=== PATIENT | male | born 1980 | race Caucasian/White ===

== ENCOUNTER 2019-11-09 02:51 | Emergency (ER) | payer SELFPAY ==
[2019-11-09] MEDS ORDERED: EPINEPHrine 1 MG/10 ML Abboject SYRINGE ONE (03:00)
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
== END 2019-11-09 03:02 | disposition expired ==
LOC: ERS 02:51 → MERGE 02:51 → EDBD 02:51 → ERS 03:02
DX: T59.811A Toxic effect of smoke, accidental (unintentional), initial encounter (principal); J68.8 Other respiratory conditions due to chemicals, gases, fumes and vapors; I46.9 Cardiac arrest, cause unspecified; T23.201A Burn of second degree of right hand, unspecified site, initial encounter; T23.202A Burn of second degree of left hand, unspecified site, initial encounter; T20.20XA Burn of second degree of head, face, and neck, unspecified site, initial encounter; T21.20XA Burn of second degree of trunk, unspecified site, initial encounter; T31.10 Burns involving 10-19% of body surface with 0% to 9% third degree burns; X08.8XXA Exposure to other specified smoke, fire and flames, initial encounter
CPT/HCPCS: 92950; 96374; G0390; J0171